=== PATIENT | male | born 1990 | race American Indian/Alaskan Native ===

== ENCOUNTER 2019-02-10 17:39 | Emergency (ER) | payer SELFPAY ==
--- NOTE | 2019-02-10 18:49 | Event Note ---
ED Screening Note Date of service: 02/10/19 Time: 18:45 ED Screening Note: This is a 28 y.o. M. that presents to the ER with abscess to pilonidal area x 1- 2 weeks. This initial assessment/diagnostic orders/clinical plan/treatment(s) is/are subject to change based on patients health status, clinical progression and re- assessment by fellow clinical providers in the ED. Further treatment and workup at subsequent clinical providers discretion. Patient/guardian urged not to elope from the ED as their condition may be serious if not clinically assessed and managed. Initial orders include: ACC for I&D
[2019-02-10] MEDS ORDERED: XYLOCAINE 1% MPF 5 mL INFILTRATI ONE (20:07)
[2019-02-10] MEDS ORDERED: NORCO 5/325 PO ONE (20:07)
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
[2019-02-10 22:39] VITALS: BP 127/68
== END 2019-02-10 22:39 | disposition home or self-care (01) ==
LOC: ED 17:39
DX: L02.31 Cutaneous abscess of buttock (principal); F17.200 Nicotine dependence, unspecified, uncomplicated; Z79.899 Other long term (current) drug therapy
CPT/HCPCS: 99282